=== PATIENT | male | born 1945 | race Caucasian/White ===

== ENCOUNTER → 2023-03-12 11:34 | Outpatient (CLI) | payer MEDICARE, SELFPAY ==
--- NOTE | ~2023-03-12 | XR_ITS ---
EXAMINATION: XR finger 1st RT min 2V DATE: 03/12/2023 12:08 INDICATION: Recent removal of a bone mass at the right first distal phalanx TECHNIQUE: Dorsal palmar, lateral and 2 oblique views of the right first digit were obtained COMPARISON: None FINDINGS: Bone alignment is normal. No fracture. Polyarticular osteoarthritis, moderate severity at the first i nterphalangeal and second metacarpophalangeal joints and mild at the first metacarpophalangeal joint and multiple joints at the right wrist and carpus. Mild hypertrophic osteophytes at the ulnar side of the tuft of the first distal phalanx. No evident cortical erosion or osteolysis. Soft tissues are un remarkable. IMPRESSION: 1. Mild to moderate polyarticular osteoarthritis at the visualized right hand. No acute osseous abnor mality. Reviewed, dictated and finalized at location A. ENGINEER IMPRESSION: 1. Mild to moderate polyarticular osteoarthritis at the visualized right hand. No acute osseous abnormality.
== END ==
DX: M19.041 Primary osteoarthritis, right hand (principal)
CPT/HCPCS: 73140